=== PATIENT | male | born 1985 | race Caucasian/White ===

== ENCOUNTER 2021-03-01 10:23 | Emergency (ER) | payer MEDICAID, SELFPAY ==
--- NOTE | ~2021-03-01 | XR_ITS ---
EXAMINATION: XR chest 1V portable 03/01/2021 11:19 INDICATION: Shortness of breath PROCEDURE: AP portable chest COMPARISON: No prior studies for comparison. FINDINGS: The lungs are clear. The cardiomediastinal silhouette is within normal limits. There are no pleural effusions. There is no pneumothorax suspected. IMPRESSION: 1: NO ACUTE CARDIOPULMONARY DISEASE. Reviewed, dictated and finalized at location A.
[2021-03-01 10:25] VITALS: BP 186/134; PULSE 120; RESP 20; TEMP 37.1; O2SAT 99
[2021-03-01 10:47] VITALS: BP 169/123; PULSE 108; RESP 20; O2SAT 98
--- NOTE | 2021-03-01 11:09 | ECG_ITS ---
Measurements Intervals [place] Rate: 81 P: 26 CO: 171 QRS: -8 QRSD: 109 T: 3 QT: 405 QTc: 470 Interpretive Statements SINUS RHYTHM DELAYED PRECORDIAL R/S TRANSITION MINIMAL Q WAVES- HIGH LATERAL LEADS BORDERLINE T WAVE ABNORMALITY- INFERIOR LEADS BORDERLINE ECG Electronically Signed On 03-01-2021 14:58:05 CDT by Frederic Askew D.O.
[2021-03-01 11:25] LABS: Basophils Absolute Auto 0.1 K/mm3 (0.0-0.1); Basophils Percent Auto 0.7 % (0.2-1.2); Eosinophils Absolute Auto 0.2 K/mm3 (0-0.3); Hematocrit 46.4 % (42.0-52.0); Hemoglobin 15.5 g/dL (14.0-18.0); Immature Granulocyte Absolute 0.03 K/mm3 (0.00-0.031); Immature Granulocyte Percent A 0.4 % (0-0.5); Immature Platelet Fraction Pct 11.2 % (0.9-11.2); Lymphocytes Absolute Auto 2.21 K/mm3 (0.9-3.2); Lymphocytes Percent Auto 27.6 % (18.3-44.2); Mean Corpuscular HGB Conc 33.4 g/dl (32-36); Mean Corpuscular Hemoglobin 28.8 pg (26-34); Mean Corpuscular Volume 86.2 fl (80-100); Mean Platelet Volume 12.2 fl (7.4-10.4); Monocytes Absolute Auto 0.5 K/mm3 (0.1-0.6); Monocytes Percent Auto 6.1 % (2.6-8.5); Neutrophils Percent Auto 62.2 % (45.5-73.1); Platelet Count Result 113 k/mm3 (150-375); Red Blood Count 5.38 M/mm3 (4.6-6.20); Red Cell Distribution Width 12.9 % (11.5-14.5)
[2021-03-01 11:31] LABS: Alanine Aminotransferase 65 U/L (4-50); Albumin Level 4.5 g/dL (3.5-5.1); Alkaline Phosphatase 133 U/L (38-126); Anion Gap 10 mmol/L (8-16); Aspartate Amino Transferase 47 U/L (17-59); Bilirubin,Total 0.8 mg/dL (0.2-1.3); Blood Urea Nitrogen 5 mg/dL (9-20); Calcium 9.4 mg/dL (8.4-10.2); Carbon Dioxide 28 mmol/L (22-30); Chloride 101 mmol/L (98-107); Estimated CRCL calculation 232 ml/min; Estimated Glomerular Filt Rate > 60; Glucose 266 mg/dL (75-110); Potassium 3.5 mmol/L (3.4-5.0); Sodium 139 mmol/L (137-145)
[2021-03-01] MEDS: SODIUM CHLORIDE 0.9% IV 1,000 ML 999 ML IV CONT (11:47)
[2021-03-01] MEDS: LORazepam INJ (*CRX) 2 MG/ML VIAL 1 MG IV PUSH (11:48)
[2021-03-01 11:56] LABS: Hemoglobin A1C 10.7 % (<5.7)
[2021-03-01 12:01] VITALS: BP 151/98; PULSE 91; RESP 16; O2SAT 99
[2021-03-01 12:33] VITALS: PULSE 89; RESP 13; O2SAT 98
--- NOTE | 2021-03-01 12:48 | ED.GENADULT ---
HPI - General Adult General Chief complaint: Recheck/Abnormal Lab/Rx <Ze Wright PA-C - Last Filed: 03/01/21 13:07> Stated complaint: high bp <Ze Wright PA-C - Last Filed: 03/01/21 13:07> Time Seen by Provider: 03/01/21 10:46 <Ze Wright PA-C - Last Filed: 03/01/21 13:07> Source: patient, family and RN notes reviewed <Ze Wright PA-C - Last Filed: 03/01/21 13:07> Mode of arrival: ambulatory <Ze Wright PA-C - Last Filed: 03/01/21 13:07> Limitations: no limitations <Ze Wright PA-C - Last Filed: 03/01/21 13:07> History of Present Illness HPI narrative: Patient a 36-year-old male who presents with family for evaluation of elevated blood pressures over the last week had been checking his blood pressures due to stress at work. Presented today with elevated blood pressure concern. Patient denies similar occurrence in the past or any past medical history and notes he is an otherwise healthy male. Patient has no complaints and denies any symptoms. Patient notes he has been more stressed out with work which she attributes as a possible etiology. <Ze Wright PA-C - Last Filed: 03/01/21 13:07> Related Data Home medications: Home Medications Medication Instructions Recorded Confirmed omeprazole magnesium [Prilosec OTC] 20 mg PO DAILY 03/01/21 03/01/21 <Ze Wrigth PA-C - Last Filed: 03/01/21 13:07> Allergies/adverse reactions: Allergies Allergy/AdvReac Type Severity Reaction Status Date / Time No Known Allergies Allergy Verified 03/01/21 10:30 <Ze Wright PA-C - Last Filed: 03/01/21 13:07> Review of Systems Review of Systems: All systems reviewed & are unremarkable except as noted in HPI and below <Ze Wright PA-C - Last Filed: 03/01/21 13:07> [facility] Past Medical History Medical History: Medical History (Updated 03/01/21 @ 12:56 by Ze Wright PA-C) Obesity <Ze Wright PA-C - Last Filed: 03/01/21 13:07> Social History Social History: Social History (Updated 03/01/21 @ 12:50 by Ze Wright PA-C) Smoking status: Current every day smoker <Ze Wright PA-C - Last Filed: 03/01/21 13:07> Exam Narrative: Exam Narrative: GENERAL: Well-appearing, obese, and in no acute distress. HEAD: Normocephalic, atraumatic. EYES: PERRLA and EOMI. ENT: Nares clear, no rhinorrhea or epistaxis. Mucous membranes moist. CHEST: Clear to auscultation. No respiratory distress. No wheezes rales or rhonchi HEART: Regular rate and rhythm. No murmur heard. Normal peripheral pulses. ABDOMEN: Soft, nontender, nondistended EXTREMITIES: Normal range of motion. No edema. SKIN: Warm, dry, no rash. NEURO: No focal deficits. Alert and oriented x3. Cranial nerves II through XII grossly intact PSYCH: Normal mood and affect. <Ze Wright PA-C - Last Filed: 03/01/21 13:07> Course Course Emergency Course: Patient evaluated the emergency department for concern for elevated blood pressures his blood pressure has normalized 147/98 was found to have hyperglycemia will be referred to primary care started on Metformin for this patient is agreement with this treatment plan feels comfortable for discharge home was made aware of his case findings and treatment plan <Ze Wright PA-C - Last Filed: 03/01/21 13:07> Vital Signs Vital signs: Vital Signs Temperature 98.7 F 03/01/21 10:25 Pulse Rate 120 H 03/01/21 10:25 Respiratory Rate 20 03/01/21 10:25 Blood Pressure 186/134 H 03/01/21 10:25 Pulse Oximetry 99 03/01/21 10:25 Temperature 98.7 F 03/01/21 10:25 Pulse Rate 87 03/01/21 13:30 Respiratory Rate 16 03/01/21 13:30 Blood Pressure 156/97 H 03/01/21 13:30 Pulse Oximetry 100 03/01/21 13:30 <Ze Wright PA-C - Last Filed: 03/01/21 13:07> Vital Signs Temperature 98.7 F 03/01/21 10:25 Pulse Rate 120 H 03/01/21
[2021-03-01 13:01] VITALS: BP 156/97; PULSE 87; RESP 11; O2SAT 100
[2021-03-01 13:30] VITALS: BP 156/97; PULSE 87; RESP 16; O2SAT 100
== END 2021-03-01 13:25 | disposition home or self-care (01) ==
PROVIDERS: Emergency Medicine Emergency Medical Services; Emergency Provider General Practice
DX: R03.0 Elevated blood-pressure reading, without diagnosis of hypertension (principal); R73.9 Hyperglycemia, unspecified; E66.9 Obesity, unspecified; Z68.43 Body mass index [BMI] 50.0-59.9, adult; R94.31 Abnormal electrocardiogram [ECG] [EKG]
CPT/HCPCS: 36415; 71045; 80053; 83036; 85025; 85055; 93005; 96361; 96374; 99284; J2060; J7030

== ENCOUNTER 2021-03-04 07:46 | Outpatient (CLI) | payer MEDICAID, SELFPAY ==
[2021-03-04 09:17] LABS: Cholesterol 170 mg/dL (0-200); HDL Direct 31 mg/dL; Triglycerides 215 mg/dL (<150)
[2021-03-04 09:28] LABS: LDL Cholesterol Direct 91 mg/dL
[2021-03-04 10:51] LABS: Free T4 Free Thyroxine 1.27 ng/mL (0.78-2.19)
[2021-03-04 11:06] LABS: Hepatitis B Surface Antigen Negative (Negative)
[2021-03-04 11:13] LABS: HAV RESULT Negative (Negative); Hepatitis B Core IgM Result Negative (Negative)
[2021-03-04 11:24] LABS: Hepatitis C Virus Antibody Negative (Negative)
== END 2021-03-04 07:47 | disposition home or self-care (01) ==
PROVIDERS: Visit Provider Emergency Medicine
DX: Z00.00 Encounter for general adult medical examination without abnormal findings (principal)
CPT/HCPCS: 36415; 80061; 80074; 82306; 84439; 84443

== ENCOUNTER 2021-03-05 14:42 | Emergency (ER) | payer MEDICAID, SELFPAY ==
--- NOTE | ~2021-03-05 | CT_ITS ---
EXAMINATION: CT soft tissue neck w con EXAM DATE: 03/05/2021 17:50 INDICATION: Right sided neck swelling. TECHNIQUE: Spiral CT of the neck was performed following intravenous injection of 75 mL Omnipaque 350 . Axial, coronal and sagittal images were reviewed. The dose-length product (DLP) for this examinat ion was 642.11 mGy-cm. The exposure was tailored according to patient size (auto mA exposure control ), and iterative reconstruction (ASIR) was used as additional dose reduction technique. There is no prior study for comparison. FINDINGS: There is an externally placed marker along the right anterior aspect of the neck. Deep to t his is a focal subcutaneous peripherally enhancing region measuring up to 1.9 cm, with adjacent infla mmation. Some skin thickening as well. Could be infected sebaceous cyst or small abscess. Superficial location would make a necrotic lymph node less likely. This could be easily percutaneously lanced or aspirated if indicated clinically. There is a left submandibular pathologically enlarged lymph node at 1.8 x 1.5 cm, probably reactive. The thyroid gland is unremarkable. The submandibular and parotid glands are symmetric. The super ior mediastinum is unremarkable. The airway is unremarkable. Parapharyngeal and pre-glottic fat p lanes are preserved. The opacified vasculature is patent. The orbits are unremarkable. Visualiz ed sinuses and mastoid air cells are well aerated. Lung apices are clear. Bones are unremarkable. IMPRESSION: 1. Right side anterior neck subcutaneous peripherally enhancing fluid pocket with surrounding edema, skin thickening. Consider infected sebaceous cyst or abscess, and overlying cellulitis. Clinical cor relation, follow-up, possible aspiration indicated. 2. Enlarged left submandibular lymph node probably reactive. Reviewed, dictated and finalized at location A. IMPRESSION: 1. Right side anterior neck subcutaneous peripherally enhancing fluid pocket w ith surrounding edema, skin thickening. Consider infected sebaceous cyst or abs cess, and overlying cellulitis. Clinical correlation, follow-up, possible aspir ation indicated. 2. Enlarged left submandibular lymph node probably reactive.
[2021-03-05 14:55] VITALS: BP 157/105; PULSE 97; RESP 16; TEMP 36.6; O2SAT 98
--- NOTE | 2021-03-05 15:29 | ED.SKABFB ---
HPI - Skin/Abscess/Foreign Bdy General Chief complaint: Skin/Abscess/Foreign Body Stated complaint: Lump on neck Time Seen by Provider: 03/05/21 15:12 Source: patient Mode of arrival: ambulatory Limitations: no limitations History of Present Illness HPI narrative: Patient is a 36-year-old male complaining of painful tender swollen area right anterior neck that started 2 weeks ago. Patient states that it started out as a pimple and he tried to squeeze it and now it has enlarged. Denies any fever or chills. Denies any dysphagia. Related Data Home Medications Medication Instructions Recorded Confirmed omeprazole magnesium [Prilosec OTC] 20 mg PO DAILY 03/01/21 03/01/21 Allergies Allergy/AdvReac Type Severity Reaction Status Date / Time No Known Allergies Allergy Verified 03/05/21 15:38 Review of Systems Review of Systems: All systems reviewed & are unremarkable except as noted in HPI and below Constitutional: Constitutional: Denies body ache(s), Denies chills, Denies excessive sweating, Denies fatigue, Denies fever(s), Denies headache(s), Denies lethargy, Denies malaise, Denies weakness and Denies weight loss Eyes: Eyes: Denies blurry vision, Denies change in vision and Denies loss of vision ENT: Denies dizziness, Denies ear discharge, Denies headache(s), Denies lip swelling, Denies epistaxis, Denies nasal congestion, Denies neck pain, Denies throat swelling and Denies tongue swelling Cardiovascular: Cardiovascular: Denies chest pain, Denies chest pain at rest, Denies chest pain with activity, Denies diaphoresis, Denies rapid heart rate, Denies edema, Denies irregular heart rhythm, Denies lightheadedness, Denies palpitations, Denies dyspnea and Denies dyspnea on exertion Respiratory: Respiratory: Denies chest congestion, Denies cough, Denies hemoptysis, Denies dyspnea and Denies dyspnea on exertion Gastrointestinal: Gastrointestinal: Denies abdominal pain, Denies melena, Denies hematochezia, Denies diarrhea, Denies nausea, Denies vomiting and Denies hematemesis Musculoskeletal: Musculoskeletal: Denies abnormal gait, Denies deformity, Denies joint swelling, Denies limited range of motion, Denies neck pain and Denies numbness Neurologic: Denies Abnormal speech present, Denies abnormal gait, Denies confusion, Denies dizziness, Denies headache(s), Denies focal weakness, Denies loss of vision, Denies numbness, Denies Other visual disturbances, Denies Sensory deficit (Neuro) and Denies weakness Psychiatric: Psychiatric: Denies confusion, Denies depression, Denies auditory hallucinations, Denies homicidal ideation and Denies suicidal ideation Endocrine: Endocrine: Denies cold intolerance, Denies excessive sweating, Denies fatigue, Denies heat intolerance and Denies palpitations Hematologic/Lymphatic: Hematologic/Lymphatic: Denies easy bleeding and Denies easy bruising Allergic/Immunologic: Allergic/Immunologic: Denies lip swelling, Denies throat swelling and Denies tongue swelling PMFSH Past Medical History Medical History Obesity Social History Social History Smoking status: Current every day smoker Comments Past medical history: Diabetes, hypertension Social history: Positive for smoker, no EtOH use, occasional marijuana use. Family history: Diabetes Exam Const: General: cooperative, healthy appearing, comfortable, no acute distress, well developed, alert and awake; No confusion Orientation/consciousness: oriented to person, oriented to place, oriented to time, patient oriented x3 and No confusion Limitations: no limitations HENMT: Head: normal to inspection, normocephalic and atraumatic Ears: hearing grossly normal bilaterally, TM normal on the right and TM normal on the left General nose exam: Normal external nose present, Normal nares present and No nasal discharge present Face and sinus: normal faci
[2021-03-05 16:47] LABS: Basophils Absolute Auto 0.1 K/mm3 (0.0-0.1); Basophils Percent Auto 0.7 % (0.2-1.2); Eosinophils Absolute Auto 0.5 K/mm3 (0-0.3); Hematocrit 46.9 % (42.0-52.0); Hemoglobin 15.7 g/dL (14.0-18.0); Immature Granulocyte Absolute 0.03 K/mm3 (0.00-0.031); Immature Granulocyte Percent A 0.3 % (0-0.5); Lymphocytes Absolute Auto 2.06 K/mm3 (0.9-3.2); Lymphocytes Percent Auto 18.4 % (18.3-44.2); Mean Corpuscular HGB Conc 33.5 g/dl (32-36); Mean Corpuscular Hemoglobin 28.8 pg (26-34); Mean Corpuscular Volume 86.1 fl (80-100); Mean Platelet Volume 10.1 fl (7.4-10.4); Monocytes Absolute Auto 0.8 K/mm3 (0.1-0.6); Monocytes Percent Auto 7.5 % (2.6-8.5); Neutrophils Absolute Auto 7.7 K/mm3 (1.3-6.7); Neutrophils Percent Auto 69.1 % (45.5-73.1); Platelet Count Result 272 k/mm3 (150-375); Red Blood Count 5.45 M/mm3 (4.6-6.20); Red Cell Distribution Width 13.1 % (11.5-14.5); White Blood Count 11.2 K/mm3 (4.5-10.0)
[2021-03-05 17:13] LABS: Anion Gap 8 mmol/L (8-16); Blood Urea Nitrogen 9 mg/dL (9-20); Calcium 9.4 mg/dL (8.4-10.2); Carbon Dioxide 27 mmol/L (22-30); Chloride 104 mmol/L (98-107); Estimated CRCL calculation 233 ml/min; Estimated Glomerular Filt Rate > 60; Glucose 180 mg/dL (75-110); Potassium 3.6 mmol/L (3.4-5.0); Sodium 139 mmol/L (137-145)
[2021-03-05] MEDS: CLINDAMYCIN 600 MG/D5W 50 ML 600 MG/50 ML PIGGYBACK 100 MG IVPB (18:37)
[2021-03-05 21:36] VITALS: BP 160/100; PULSE 88; RESP 17; O2SAT 100
== END 2021-03-05 21:38 | disposition home or self-care (01) ==
PROVIDERS: Emergency Provider Emergency Medicine; PCP Emergency Medicine
DX: L02.11 Cutaneous abscess of neck (principal); L03.221 Cellulitis of neck; E11.9 Type 2 diabetes mellitus without complications; I10 Essential (primary) hypertension; E66.9 Obesity, unspecified; Z68.43 Body mass index [BMI] 50.0-59.9, adult; F17.200 Nicotine dependence, unspecified, uncomplicated; Z79.84 Long term (current) use of oral hypoglycemic drugs
CPT/HCPCS: 10061; 36415; 70491; 80048; 85025; 96365; 99284; Q9967

== ENCOUNTER 2021-06-05 07:56 | Outpatient (CLI) | payer OTHER, SELFPAY ==
--- NOTE | 2021-06-18 12:12 | WPDHOMESLEEP ---
Sleep Study - Home Unattended Date of Study: 06/05/21 <Yamilex Ryan DO - Last Filed: 06/18/21 12:30> Ordering Provider: Juan Mcarthur MD <Yamilex Ryan DO - Last Filed: 06/18/21 12:30> Interpreting Provider: Yamilex Ryan DO <Yamilex Ryan DO - Last Filed: 06/18/21 12:30> Home Sleep Study Type: Apnea Link Air <Yamilex Ryan DO - Last Filed: 06/18/21 12:30> Height: 1.63 m <Yamilex Ryan DO - Last Filed: 06/18/21 12:30> Weight: 149.685 kg <Yamilex Ryan DO - Last Filed: 06/18/21 12:30> Body Mass Index: 56.6 <Yamilex Ryan DO - Last Filed: 06/18/21 12:30> Neck Circumference (inches): 19 <Yamilex Ryan DO - Last Filed: 06/18/21 12:30> [place]: 9 <Yamilex Ryan DO - Last Filed: 06/18/21 12:30> Reason for Sleep Study The patient had a home sleep test ordered by his online communications specialist for snoring and daytime somnolence. <Yamilex Ryan DO - Last Filed: 06/18/21 12:30> Sleep History The patient is a 36-year-old male with resistant hypertension, type 2 diabetes, morbid obesity, depression, attention deficit disorder and GERD but had a home sleep test ordered by his online communications specialist. The patient states that he snores and stops breathing during his sleep. This occurs almost every night for the past 2+ years. He states that his brothers and father do the same thing. The patient often awakens from sleep short of breath. He often awakens at night with heartburn, belching or cough. He constantly snores loudly enough that others complain. He often has trouble sleeping when he has a cold. He often suddenly wakes up gasping for air throughout the night. He constantly has breathing problems at night that are observed by others. He frequently sweats excessively at night. He denies any heart palpitations throughout the night. He frequently falls asleep during the day But denies falling asleep while driving. He denies sleep paralysis and cataplexy. He often has trouble at school or work due to sleepiness. The patient often experiences vivid dreamlike scenes upon awakening or falling asleep. The patient often has nightmares. He often has thoughts racing through his mind. He frequently feels sad, depressed and anxious. He often notices parts of his body jerk. He denies kicking throughout the night. He rarely experiences crawling and aching feelings in his legs. He denies leg pain during the night. He denies grinding his teeth during sleep and having morning jaw pain. He is often bothered by pain during the day but rarely awakened by pain during the night. He wakes up feeling stiff in the morning frequently with sore achy muscles. The patient apparently goes to bed at 11:00 p.m. on the weekdays and 12:00 a.m. on the weekends. He falls asleep pretty quickly. He wakes up 1-2 times per night for unknown reasons. It takes him 10-15 minutes to fall back asleep. He wakes up at 6:00 a.m. on the weekdays and 8:00 a.m. on the weekends. He typically gets 6 hours of sleep per night. He usually stays in bed tender 15 minutes after waking up in the morning. He currently lives with his fiancee and 2 stepdaughters. The patient does not consume any caffeinated beverages 2 hours prior to going to bed. He does not engage in physical exercise before bedtime. He does not read before falling asleep but he will watch television. He does take naps during the afternoon or evening but they are not refreshing. <Yamilex Ryan DO - Last Filed: 06/18/21 12:30> [facility] Past Medical History Medical History: Medical History Obesity <Yamilex Ryan DO - Last Filed: 06/18/21 12:30> Surgical History Surgical History: Surgical History Hx of joint surgery 1999 Hx of unilateral orchiectomy 2006 <
[2021-06-18 12:21] VITALS: BMI 56.6
== END 2021-06-08 15:10 | disposition home or self-care (01) ==
LOC: ANHCSM 07:58
PROVIDERS: PCP Internal Medicine; Visit Provider Internal Medicine Cardiovascular Disease
DX: G47.10 Hypersomnia, unspecified (principal); G47.33 Obstructive sleep apnea (adult) (pediatric)
CPT/HCPCS: 95806

== ENCOUNTER → 2021-08-03 07:51 | Outpatient (CLI) | payer OTHER, SELFPAY ==
[2021-08-17 07:26] VITALS: BMI 56.6
--- NOTE | 2021-08-17 07:26 | WPDSLEEPSTUD ---
Sleep Study Date of Study: 08/03/21 Ordering Provider: Maxi Galarza APRN Interpreting Physician: Leydi Horowitz MD Sleep Study Type: CPAP Titration Height: 1.63 m Weight: 149.685 kg Body Mass Index: 56.6 Neck Circumference (inches): 16 [place]: 9 Reason for Sleep Study *U Home sleep test 06/05/2021 with severe obstructive sleep apnea, AHI Sleep History Mynor Gaytan us a 36-year-old male with resistant hypertension, type 2 diabetes, morbid obesity, depression, attention deficit disorder and GERD. On 06/05/2021 a home sleep test ordered by his church history professor showed severe obstructive sleep apnea with an AHI 74.5with desaturation to 73% and loud snoring. The patient states that he snores and stops breathing during his sleep. This occurs almost every night for the past 2+ years. There is a family of sleep disordered breathing with his brothers and father having the same symptoms. The patient often awakens from sleep short of breath. He often awakens at night with heartburn, belching or coughing. He constantly snores loudly enough that others complain. He often has trouble sleeping when he has a cold. He often suddenly wakes up gasping for air throughout the night. He constantly has breathing problems at night that are observed by others. He frequently sweats excessively at night. He denies any heart palpitations throughout the night. He frequently falls asleep during the day But denies falling asleep while driving. He denies sleep paralysis and cataplexy. He often has trouble at school or work due to sleepiness. The patient often experiences vivid dreamlike scenes upon awakening or falling asleep. The patient often has nightmares. He often has thoughts racing through his mind. He frequently feels sad, depressed and anxious. He often notices parts of his body jerk. He denies kicking throughout the night. He rarely experiences crawling and aching feelings in his legs. He denies leg pain during the night. He denies grinding his teeth during sleep and having morning jaw pain. He is often bothered by pain during the day but rarely awakened by pain during the night. He wakes up feeling stiff in the morning frequently with sore achy muscles. Normal bedtime is 11:00 p.m. on the weekdays and 12:00 a.m. on the weekends. He falls asleep pretty quickly. He wakes up 1-2 times per night for unknown reasons. It takes him 10-15 minutes to fall back asleep. He wakes up at 6:00 a.m. on the weekdays and 8:00 a.m. on the weekends. He typically gets 6 hours of sleep per night. He usually stays in bed 15 minutes after waking up in the morning. He currently lives with his fiancee and 2 stepdaughters. The patient does not consume any caffeinated beverages 2 hours prior to going to bed. He does not engage in physical exercise before bedtime. He does not read before falling asleep but he will watch television. He does take naps during the afternoon or evening but they are not refreshing. Habits: Tobacco smoking down to quarter pack per day. No alcohol. No recreational drugs. [facility] Past Medical History Medical History (Updated 08/17/21 @ 07:32 by Leydi Horowitz MD) Depression Diabetes type 2, uncontrolled GERD (gastroesophageal reflux disease) Hyperlipidemia Hypertension Obesity JULEE (obstructive sleep apnea) Surgical History Surgical History Hx of joint surgery 1999 Hx of unilateral orchiectomy 2006 Family History Family History Unknown Lung cancer Social History Social History Years smoked: 15 Smoking status: Current every day smoker Tobacco type: cigarettes Second hand tobacco smoke exposure: Yes Alcohol intake: never Substance use: never Gender identity (if verbalized by the patient): Male Medications Home Medications Medicati
== END ==
PROVIDERS: PCP Internal Medicine; Visit Provider Nurse Practitioner Family
DX: G47.33 Obstructive sleep apnea (adult) (pediatric) (principal)
CPT/HCPCS: 95811

== ENCOUNTER 2021-11-13 07:51 | Outpatient (CLI) | payer OTHER, SELFPAY ==
[2021-11-13 09:00] LABS: Alanine Aminotransferase 43 U/L (4-50); Albumin Level 4.3 g/dL (3.5-5.1); Alkaline Phosphatase 83 U/L (38-126); Anion Gap 10 mmol/L (8-16); Aspartate Amino Transferase 32 U/L (17-59); Bilirubin,Total 0.5 mg/dL (0.2-1.3); Blood Urea Nitrogen 11 mg/dL (9-20); Calcium 8.8 mg/dL (8.4-10.2); Carbon Dioxide 29 mmol/L (22-30); Chloride 102 mmol/L (98-107); Cholesterol 158 mg/dL (0-200); Estimated Glomerular Filt Rate > 60; Glucose 165 mg/dL (65-110); HDL Direct 30 mg/dL; Potassium 3.7 mmol/L (3.4-5.0); Sodium 141 mmol/L (137-145); Triglycerides 342 mg/dL (<150)
[2021-11-13 09:11] LABS: LDL Cholesterol Direct 73 mg/dL
[2021-11-13 09:33] LABS: Microalbumin Urine Random 54.4 mg/L (0-16.7)
[2021-11-13 09:53] LABS: Creatinine Urine 366.4 mg/dL; MALB Creatinine Ratio 14.8 mg/g (0-30)
[2021-11-13 12:44] LABS: Hemoglobin A1C 6.9 % (<5.7)
== END 2021-11-13 07:52 | disposition home or self-care (01) ==
PROVIDERS: PCP Internal Medicine; Visit Provider Nurse Practitioner
DX: E78.5 Hyperlipidemia, unspecified (principal); E11.65 Type 2 diabetes mellitus with hyperglycemia; F32.9 Major depressive disorder, single episode, unspecified
CPT/HCPCS: 36415; 80053; 80061; 82043; 83036; 84443

== ENCOUNTER 2021-11-20 10:21 | Outpatient (CLI) | payer OTHER, SELFPAY ==
--- NOTE | ~2021-11-20 | XR_ITS ---
XR lumbar spine 2-3V DATE: 11/20/2021 10:46 INDICATION: Chronic back pain. No known injury. TECHNIQUE: AP, lateral, coned lateral lumbosacral views COMPARISON: None FINDINGS: There is minimal degenerative spurring of the lumbar spine. No fracture or bone destruction or spondylolisthesis. The lumbar pedicles are intact. The sacroiliac joints appear normal. An approximately 7 x 14 mm calcification overlies the right upper quadrant; diffusion diagnosis inclu adarsh gallstone, kidney stone or foreign matter within the gastrointestinal tract. IMPRESSION: Mild degenerative change of the lumbar spine Nonspecific calcification overlying the right upper quadrant; follow-up KUB or CT abdomen pelvis may be helpful for more definitive evaluation of this finding. Reviewed, dictated and finalized at location A. IMPRESSION: Mild degenerative change of the lumbar spine Nonspecific calcification overlying the right upper quadrant; follow-up KUB or CT abdomen pelvis may be helpful for more definitive evaluation of this finding .
--- NOTE | ~2021-11-20 | XR_ITS ---
EXAMINATION: XR hip RT min 2V DATE: 11/20/2021 10:47 INDICATION: Right hip pain. TECHNIQUE: 2 views of right hip were obtained. COMPARISON: None. FINDINGS: Bone alignment normal. No fracture. Right hip joint space is normal. IMPRESSION: 1. Normal right hip. Reviewed, dictated and finalized at location A. IMPRESSION: 1. Normal right hip.
== END 2021-11-20 10:22 | disposition home or self-care (01) ==
PROVIDERS: PCP Internal Medicine; Visit Provider Nurse Practitioner
DX: M51.36 Other intervertebral disc degeneration, lumbar region (principal); M25.551 Pain in right hip
CPT/HCPCS: 72100; 73502

== ENCOUNTER 2021-12-11 14:57 | Outpatient (CLI) | payer OTHER, SELFPAY ==
--- NOTE | ~2021-12-11 | XR_ITS ---
XR abdomen/kub 1V DATE: 12/11/2021 15:10 INDICATION: Abnormal findings on diagnostic imaging: Nonspecific calcifications overlie right upper q uadrant and lumbar spine radiographic examination of 11/20/2021 TECHNIQUE: AP projection, 3 views COMPARISON: 11/20/2021 lumbar spine FINDINGS: Rectangular opaque density overlying the right upper quadrant on 11/20/2021 is no longer edilia dent and likely was a capsule within the bowel lumen or other foreign matter. No bowel obstruction. The psoas shadows are intact. No visceromegaly is evident. No significant abnor mal calcification is evident. IMPRESSION: No significant abnormality Interval disappearance of previously reported nonspecific calcification or opacity overlying right up per quadrant on 11/20/2021 lumbar spine radiographic examination Reviewed, dictated and finalized at Location A. Reviewed, dictated and finalized at location A. IMPRESSION: No significant abnormality Interval disappearance of previously reported nonspecific calcification or opac ity overlying right upper quadrant on 11/20/2021 lumbar spine radiographic exami nation
== END 2021-12-11 14:58 | disposition home or self-care (01) ==
PROVIDERS: PCP Internal Medicine; Visit Provider Nurse Practitioner
DX: R93.89 Abnormal findings on diagnostic imaging of other specified body structures (principal)
CPT/HCPCS: 74018

== ENCOUNTER 2022-04-06 12:15 | Outpatient (CLI) | payer OTHER, SELFPAY ==
[2022-04-06 12:46] LABS: Alanine Aminotransferase 23 U/L (6-50); Albumin Level 4.3 g/dL (3.5-5.1); Alkaline Phosphatase 89 U/L (38-126); Anion Gap 9 mmol/L (8-16); Aspartate Amino Transferase 21 U/L (17-59); Bilirubin,Total 0.5 mg/dL (0.2-1.3); Blood Urea Nitrogen 10 mg/dL (9-20); Calcium 9.3 mg/dL (8.4-10.2); Carbon Dioxide 27 mmol/L (22-30); Chloride 103 mmol/L (98-107); Cholesterol 162 mg/dL (0-200); Estimated Glomerular Filt Rate > 60; Glucose 121 mg/dL (65-110); HDL Direct 32 mg/dL; Potassium 3.9 mmol/L (3.4-5.0); Sodium 139 mmol/L (137-145); Triglycerides 189 mg/dL (<150)
[2022-04-06 12:57] LABS: LDL Cholesterol Direct 87 mg/dL
[2022-04-06 14:00] LABS: Hemoglobin A1C 6.2 % (<5.7)
== END 2022-04-06 12:16 | disposition home or self-care (01) ==
LOC: ANHLAB 12:17
PROVIDERS: PCP Internal Medicine; Visit Provider Internal Medicine
DX: E11.65 Type 2 diabetes mellitus with hyperglycemia (principal); E78.5 Hyperlipidemia, unspecified; I10 Essential (primary) hypertension
CPT/HCPCS: 36415; 80053; 80061; 83036